=== PATIENT | female | born 1945 | race African-American/Black ===

== ENCOUNTER 2020-01-17 13:56 | Emergency (ER) | payer MEDICARE, MEDICAID ==
[~2020-01-17] VITALS: Ht 167.6 cm; Wt 64.0 kg
[~2020-01-17 13:56] MED LIST: ASPI-1497 MT; BLOOD PRESSURE; BLOOD PRESSURE PILL; DIAZ10TA MT; KEPP500 MT
[2020-01-17] MEDS ORDERED: ONDANSETRON HCL 4MG/2ML INJ IV STA (14:21)
[2020-01-17] MEDS ORDERED: LEVETIRACETAM 500MG PREMIX 100 ML IV ONE (14:30)
[2020-01-17 14:49] LABS: BASOPHILS % 0.8 % (0.0-2.0); EOSINOPHILS % 1.6 % (0.0-5.0); HEMOGLOBIN. 15.2 g/dL (12.0-16.0); LYMPHOCYTES % 42.3 % (20.0-50.0); MEAN CORPUSCULAR HEMOGLOBIN 31.5 pg (28.0-32.0); MEAN CORPUSCULAR VOLUME 93.4 fL (81.0-99.0); MEAN PLATELET VOLUME 9.4 fl (7.4-10.4); MONOCYTES % 6.2 % (2.0-8.0); NEUTROPHILS % 49.1 % (40.0-76.0); PLATELET 101 x1000/uL (130-400); RED BLOOD CELL COUNT 4.82 mill/uL (4.2-5.4)
[2020-01-17 14:56] LABS: CHLORIDE 106 mEq/L (98-107)
[2020-01-17 14:59] LABS: ETHANOL BLOOD < 10 mg/dL
[2020-01-17] MEDS ORDERED: POTASSIUM CHLORIDE 20MEQ TABLET SR PO ONE (15:45)
[2020-01-17 15:57] LABS: CLARITY URINE CLEAR (CLEAR); COLOR URINE YELLOW (YELLOW); KETONES URINE NEGATIVE (NEGATIVE); LEUKOCYTE ESTERASE URINE NEGATIVE (NEGATIVE); NITRITE URINE NEGATIVE (NEGATIVE); OCCULT BLOOD URINE TRACE (NEGATIVE); PH URINE 6.5 (4.5-8.0); PROTEIN URINE 1+ (NEGATIVE); SPECIFIC GRAVITY URINE 1.014 (1.005-1.030); UROBILINOGEN URINE 0.2 E.U./dL (0.2-1.0)
[2020-01-17] MEDS ORDERED: ACETAMINOPHEN WITH CODEINE 300/30MG TABLET PO ONE (16:00)
[2020-01-17 16:08] LABS: *AMPHETAMINES SCREEN URINE NEGATIVE (NEGATIVE); *BARBITURATES SCREEN URINE NEGATIVE (NEGATIVE); *BENZODIAZEPINES SCREEN URINE PRESUMTIVE POSITIVE (NEGATIVE)
[2020-01-17 16:09] LABS: *COCAINE SCREEN URINE NEGATIVE (NEGATIVE); CANNABINOID URINE SCREEN PRESUMTIVE POSITIVE (NEGATIVE); METHADONE URINE SCREEN NEGATIVE (NEGATIVE); OPIATES URINE SCREEN NEGATIVE (NEGATIVE); PHENCYCLIDINE URINE SCREEN NEGATIVE (NEGATIVE)
[2020-01-17 17:43] VITALS: BP 138/70
== END 2020-01-17 17:47 | disposition home or self-care (01) ==
LOC: ER 13:56
DX: G40.909 Epilepsy, unspecified, not intractable, without status epilepticus (principal); E87.6 Hypokalemia; R51.9 Headache, unspecified; F17.200 Nicotine dependence, unspecified, uncomplicated; I51.9 Heart disease, unspecified; Z71.6 Tobacco abuse counseling; Z79.82 Long term (current) use of aspirin
CPT/HCPCS: 36415; 70450; 71045; 80053; 80305; 80320; 81003; 85025; 93005; 96365; 96375; 99285; 99406; J1953; J2405; G0480